=== PATIENT | female | born 2000 | race Caucasian/White ===

== ENCOUNTER → 2021-01-03 | Outpatient (CLI) | payer BC ==
--- NOTE | 2021-01-04 10:22 | US ---
EXAMINATION TYPE: US thyroid st tissue head/neck DATE OF EXAM: 01/03/2021 COMPARISON: NONE CLINICAL HISTORY: E04.0 nontoxic diffuse goiter. GLAND SIZE: Right Lobe: 5.5 x 1.5 x 1.5 cm Overall Parenchyma: homogenous Left Lobe: 5.3 x 1.2 x 1.7 cm Overall Parenchyma: homogeneous Isthmus Thickness: 0.3 cm NODULES RIGHT: # of nodules measured on right: 0 Multiple subcentimeter cystic nodules noted. LEFT: # of nodules measured on left: 0 Multiple subcentimeter cystic nodules, largest measures 0.8 x 0.7cm ISTHMUS: # of nodules measured in the isthmus: 0 Bilateral neck scanned, no evidence of lymphadenopathy. IMPRESSION: Thyromegaly with no nodules measuring 1 cm or greater. 2017 ACR TI-RADS LEVEL: TR-RADS 4 - Moderately Suspicious: Follow if > 1 cm, FNA if > 1.5 cm *Highest TI-RADS level nodule reported
== END | disposition home or self-care (01) ==
LOC: RADUSWWP 16:42
PROVIDERS: ATTEND Family Medicine
DX: E04.2 Nontoxic multinodular goiter (principal)
CPT/HCPCS: 76536